=== PATIENT | female | born 1980 | race Caucasian/White ===

== ENCOUNTER 2023-02-09 11:40 | Emergency (ER) | payer MEDICAID ==
[~2023-02-09 11:40] MED LIST: ACHD5005 PO; ALPR.5T PO; AMOX500C2 PO; ASPI1TAB17 PO; CEPH500T PO; CYCL10TA25 PO; DCS100C; DIPH1TAB45 PO; DOCU-143 PO; Depakote; ESTR1PAT28 TD; FLX20C; GBPN600T; GBPN600T PO; HYOS0.1216 PO; HYOS0.1283 SL; IBP800T PO; LINA290C PO; LISI-594 PO; LSNP10T; MELO15TA39 PO; METF-397 PO; MTC10T; ONDAN4ODT PO; ONDAN4ODT SL; PRAV10TA PO; PRM25T PO; QUET300T; RIZA10TA23 PO; TIZA-186 PO; TOPI200T25 PO; TRIA16.5 NS; migraine med
[2023-02-09 12:18] LABS: BASOPHILS % (AUTO) 1 % (0-10); EOSINOPHILS # (AUTO) 0.1 10^3/uL (0.0-0.3); EOSINOPHILS % (AUTO) 1 % (0-10); HEMATOCRIT 40 % (35-52); HEMOGLOBIN 13.2 g/dL (11.5-16.0); LYMPHOCYTES # (AUTO) 2.6 10^3/uL (1.0-4.0); LYMPHOCYTES % (AUTO) 51 % (12-44); MEAN CORPUSCULAR HEMOGLOBIN 32 pg (25-34); MEAN CORPUSCULAR HGB CONC 33 g/dL (32-36); MEAN CORPUSCULAR VOLUME 98 fL (80-99); MEAN PLATELET VOLUME 11.1 fL (9.0-12.2); MONOCYTES # (AUTO) 0.3 10^3/uL (0.0-1.0); MONOCYTES % (AUTO) 5 % (0-12); NEUTROPHILS # (AUTO) 2.2 10^3/uL (1.8-7.8); NEUTROPHILS % (AUTO) 42 % (42-75); PLATELET COUNT 150 10^3/uL (130-400); WHITE BLOOD COUNT 5.2 10^3/uL (4.3-11.0)
[2023-02-09 12:36] LABS: ALBUMIN 4.5 GM/DL (3.2-4.5); POTASSIUM 3.6 MMOL/L (3.6-5.0)
[2023-02-09 12:38] LABS: CALCIUM 9.5 MG/DL (8.5-10.1)
[2023-02-09 12:39] LABS: TOTAL PROTEIN 7.7 GM/DL (6.4-8.2)
[2023-02-09 12:40] LABS: BILIRUBIN,TOTAL 0.2 MG/DL (0.1-1.0)
[2023-02-09 12:42] LABS: CREATININE SERUM 1.04 MG/DL (0.60-1.30)
--- NOTE | 2023-02-09 12:43 | ED General ---
General Chief Complaint: Dizziness/Syncope Stated Complaint: SYNCOPE Nursing Triage Note: PT ARRIVED PER EMS, PT HAS HAD SYNCOPAL EPISODE AT WORK TODAY. PT DID NOT FALL TO FLOOR STAYED IN CHAIR. PT STATES HAS SWOLLEN AND TINGLING UP TO ARMS, WORSENING FOR 3 WEEKS HAVE HAD TINGLING FOR APPROX 1.5 YEARS. HAS EMG SCHEDULED IN APR. PT STATES HAS BEEN DROPING THINGS ALL DAY Source of Information: Patient, EMS Exam Limitations: No Limitations History of Present Illness Date Seen by Provider: Feb 09, 2023 Time Seen by Provider: 11:43 Initial Comments Susan is a 42-year-old woman who presents to the emergency room via EMS with concerns about a syncopal episode and some possible neurologic symptoms in her upper extremities. Patient is alert and oriented upon arrival. She reports today her bilateral hands were painful and tingly/numb. Symptoms appear to be equal bilaterally. She also had some brief paresthesia sensation in the right leg. Her symptoms in the arms progressed this morning to more of a numb sensation with loss of feeling in the hands. A burning sensation then progressed up her arms bilaterally. She then became very lightheaded. She reportedly had a syncopal episode. It does not appear that this was a complete syncope as patient states she could still hear others around her and was aware of the situation but could not respond. This episode lasted about 30 seconds. She felt like her legs were moving without her control during this episode. She recovered quickly to baseline after this brief episode. Symptoms are now more of a waxing and waning of the upper extremity paresthesias. She was able to walk to the EMS cot after the episode. She denies any prior syncopal or near syncopal episodes. She denies any associated chest pain, palpitations, or shortness of air. For 12 to 18 months she reports having sporadic pains in her hands, wrists, and forearms. She also finds herself dropping items unexpectedly. She denies that the pain in the neck. She has been wearing wrist braces for presumed carpal tunnel syndrome. This has been minimally helpful. She does do repetitive work with her hands. She has pending EMG studies of the upper extremities ordered by her primary care provider. Allergies and Home Medications Allergies Coded Allergies: No Known Drug Allergies (Unverified , 02/09/23) Patient Home Medication List Home Medication List Reviewed: Yes Review of Systems Review of Systems Constitutional: no symptoms reported EENTM: no symptoms reported Respiratory: no symptoms reported Cardiovascular: see HPI Gastrointestinal: no symptoms reported Genitourinary: no symptoms reported : No Musculoskeletal: see HPI Skin: no symptoms reported Psychiatric/Neurological: See HPI Hematologic/Lymphatic: No Symptoms Reported Immunological/Allergic: no symptoms reported Past Qagqzmy-Fnepzg-Bvndua Hx Patient Social History Tobacco Use?: No Substance use?: No Alcohol Use?: No Pt feels they are or have been: No Past Medical History Surgery/Hospitalization HX: MIGRAINES. T AND A, GB, APPY, HYST, C-SECTIONS, WRIST FROM GANGLION CYST, L ANKLE SURG X3 Surgeries: Yes Appendectomy, Section, Gallbladder, Hysterectomy, Orthopedic (Foot, ganglion cyst removal), Tonsillectomy Respiratory: No Cardiac: Yes High Cholesterol Neurological: Yes Headaches /Migraines : No Genitourinary: No Gastrointestinal: No Musculoskeletal: No Endocrine: No HEENT: No Cancer: No Psychosocial: No Physical Exam Vital Signs Vital Signs - First Documented 02/09/23 02/09/23 11:47 15:41 Temp 36.2 Pulse 67 Resp 18 B/P (MAP) 149/94 (112) Pulse Ox 100 O2 Delivery Room Air Capillary Refill : Less Than 3 Seconds Height, Weight, BMI Height: '" Weight: lbs. oz. kg; BMI Method: General Appearance: No Apparent Distress, WD/WN HEENT: PERRL/EOMI, Normal ENT Inspection Neck: Normal Inspection, Non Tender Respiratory: Lungs Clear, Normal Breath Sounds, No Accessory Muscle Use Cardiovascular: Regular Rate, Rhythm, No Edema, No Murmur Gastrointestinal: Non Tender, Soft; No Distended Extremity: Normal Inspection, Non Tender, No Pedal Edema Neurologic/Psychiatric: Alert, Oriented x3, No Motor/Sensory Deficits, Normal Mood/Affect Skin: Normal Color, Warm/Dry Progress/Results/Core Measures Suspected Sepsis SIRS Temperature: Pulse: 67 Respiratory Rate: 18 Laboratory Tests 02/09/23 12:10: White Blood Count 5.2 Blood Pressure 149 /94 Mean: 112 Laboratory Tests 02/09/23 12:10: Creatinine 1.04, Platelet Count 150, Total Bilirubin 0.2 Results/Orders Lab Results Laboratory Tests Test 02/09/23 12:10 02/09/23 13:32 Range/Units White Blood Count 5.2 4.3-11.0 10^3/uL Red Blood Count 4.11 3.80-5.11 10^6/uL Hemoglobin 13.2 11.5-16.0 g/dL Hematocrit 40 35-52 % Mean Corpuscular Volume 98 80-99 fL Mean Corpuscular Hemoglobin 32 25-34 pg Mean Corpuscular Hemoglobin Concent 33 32-36 g/dL Red Cell Distribution Width 13.6 10.0-14.5 % Platelet Count 150 130-400 10^3/uL Mean Platelet Volume 11.1 9.0-12.2 fL Immature Granulocyte % (Auto) 0 % Neutrophils (%) (Auto) 42 42-75 % Lymphocytes (%) (Auto) 51 H 12-44 % Monocytes (%) (Auto) 5 0-12 % Eosinophils (%) (Auto) 1 0-10 % Basophils (%) (Auto) 1 0-10 % Neutrophils # (Auto) 2.2 1.8-7.8 10^3/uL Lymphocytes # (Auto) 2.6 1.0-4.0 10^3/uL Monocytes # (Auto) 0.3 0.0-1.0 10^3/uL Eosinophils # (Auto) 0.1 0.0-0.3 10^3/uL Basophils # (Auto) 0.0 0.0-0.1 10^3/uL Immature Granulocyte # (Auto) 0.0 0.0-0.1 10^3/uL Sodium Level 141 135-145 MMOL/L Potassium Level 3.6 3.6-5.0 MMOL/L Chloride Level 117 H 98-107 MMOL/L Carbon Dioxide Level 15 L 21-32 MMOL/L Anion Gap 9 5-14 MMOL/L Blood Urea Nitrogen 11 7-18 MG/DL Creatinine 1.04 0.60-1.30 MG/DL Estimat Glomerular Filtration Rate 68 BUN/Creatinine Ratio 11 Glucose Level 108 H 70-105 MG/DL Calcium Level 9.5 8.5-10.1 MG/DL Corrected Calcium 9.1 8.5-10.1 MG/DL Magnesium Level 2.0 1.6-2.4 MG/DL Total Bilirubin 0.2 0.1-1.0 MG/DL Aspartate Amino Transf (AST/SGOT) 41 H 5-34 U/L Alanine Aminotransferase (ALT/SGPT) 44 0-55 U/L Alkaline Phosphatase 88 40-136 U/L Total Protein 7.7 6.4-8.2 GM/DL Albumin 4.5 3.2-4.5 GM/DL Urine Color YELLOW Urine Clarity CLEAR Urine pH 6.0 5-9 Urine Specific [place] 1.015 L 1.016-1.022 Urine Protein NEGATIVE NEGATIVE Urine Glucose (UA) NEGATIVE NEGATIVE Urine Ketones NEGATIVE NEGATIVE Urine Nitrite NEGATIVE NEGATIVE Urine Bilirubin NEGATIVE NEGATIVE Urine Urobilinogen 0.2 < = 1.0 MG/DL Urine Leukocyte Esterase NEGATIVE NEGATIVE Urine RBC (Auto) NEGATIVE NEGATIVE Urine RBC NONE /HPF Urine WBC NONE /HPF Urine Squamous Epithelial Cells 5-10 /HPF Urine Crystals NONE /LPF Urine Bacteria NEGATIVE /HPF Urine Casts NONE /LPF Urine Mucus NEGATIVE /LPF Urine Culture Indicated NO My Orders Orders - YASMANI JOHN MD Ed Iv/Invasive Line Start (02/09/23 11:43) Ekg Tracing (02/09/23 11:43) Monitor-Rhythm Ecg Trace Only (02/09/23 11:43) Cbc And Automated Diff (02/09/23 11:43) Comprehensive Metabolic Panel (02/09/23 11:43) Magnesium (02/09/23 11:43) Ua Culture If Indicated (02/09/23 11:43) Mri Brain W/O Contrast (02/09/23 13:15) Mri Cervical Spine W/O Contras (02/09/23 13:15) Vital Signs/I&O 02/09/23 02/09/23 11:47 15:41 Temp 36.2 Pulse 67 84 Resp 18 B/P (MAP) 149/94 (112) 129/84 Pulse Ox 100 98 O2 Delivery Room Air Capillary Refill : Less Than 3 Seconds Blood Pressure Mean: 112 Progress Note : Progress Note Patient was essentially back to baseline at the time of her arrival. Report was received from EMS. Ssuan was interviewed and examined. Labs were obtained and interpreted by me. CBC, CMP, magnesium and urinalysis demonstrated no clinically relevant abnormalities by my interpretation. ECG was unremarkable with no evidence of ischemia or arrhythmia as noted in my interpretation below. MRI imaging was offered to the patient to evaluate the cervical spine and brain for possible causes of her upper extremity paresthesias and weakness as well as causes of her near syncopal episode today. Patient requested to proceed with MRI imaging. MRI brain and cervical spine were obtained. Radiologist's reports were reviewed as noted below. No significant abnormalities to explain her symptoms were identified. Patient was discharged in stable condition. See discharge instructions for further discussion. ECG Initial ECG Impression Date: Feb 09, 2023 Initial ECG Impression Time: 12:16 Initial ECG Rate: 56 Initial ECG Rhythm: Normal Sinus Initial ECG Intervals: Normal Initial ECG Impression: Normal Comment Normal sinus rhythm with no ST elevation or depression. No abnormal intervals or axis deviation. Diagnostic Imaging Diagonstic Imaging: MRI Plain Films/CT/US/NM/MRI: head Comments NAME: SUSAN JACKSON [facility] REC#: [id number] PT STATUS: DEP ER : 1980 PHYSICIAN: YASMANI JOHN MD ADMIT DATE: 02/09/23/ER Signed Date of Exam:02/09/23 MRI BRAIN W/O CONTRAST PROCEDURE: MR imaging of the brain without contrast. TECHNIQUE: Multiplanar, multisequence MR imaging of the brain was performed without contrast. INDICATION: 42-year-old female with syncopal episode, now presenting with bilateral upper extremity numbness and tingling. COMPARISON: None. FINDINGS: Midline structures are not displaced. Lateral, 3rd and 4th ventricles are normal in size, shape and anatomic position. There is no mass, mass effect, hydrocephalus or hemorrhage. Cortes-white differentiation is normal. There is no sulcal effacement. There is no area of diffusion restriction or diffusion signal abnormality to suggest acute or subacute ischemic injury. There is no abnormal extra-axial fluid collection or hemorrhage. Petrous apices as well as the 7th and 8th nerve complexes are normal. Semicircular canals and cochlea show normal signal. Visualized vascular flow voids are unremarkable. There are a diffuse small mucous retention cysts in the right maxillary sinus as well as the posterior ethmoid air cells. Orbits and mastoid air cells are unremarkable. IMPRESSION: 1. Essentially unremarkable noncontrast MRI brain. 2. Some mild chronic maxillary sinus disease with a small mucous retention cyst in the right maxillary sinus as well as the posterior ethmoid air cells. Additional nonemergent findings as described above. Dictated by: Dictated on workstation # [id number] Dict: 02/09/23 1355 Trans: 02/09/23 4062 [facility] [id number] Interpreted by: JOÃO GAINES MD Electronically signed by: JOÃO GAINES MD 02/09/23 1712 Diagonstic Imaging: MRI Plain Films/CT/US/NM/MRI: c-spine Comments NAME: SUSAN JACKSON [facility] REC#: [id number] PT STATUS: REG ER : 1980 PHYSICIAN: YASMANI JOHN MD ADMIT DATE: 02/09/23/ER Signed Date of Exam:02/09/23 MRI CERVICAL SPINE W/O CONTRAS PROCEDURE: MR imaging cervical spine without contrast. TECHNIQUE: Multiplanar, multisequence MR imaging of the cervical spine was performed without contrast. INDICATION: Syncope, bilateral upper extremity numbness and tingling. COMPARISON: None. FINDINGS: Straightening of the cervical lordosis. Mild multilevel disc height loss. No marrow replacement process to suggest malignancy. Facet joints demonstrated minimal facet arthritis. Included views of the brain demonstrate no significant abnormality. The cervical spinal cord is normal. Destructive vertebral artery flow voids are maintained. No significant spinal canal or neural foraminal stenosis. IMPRESSION: No significant spinal canal or neuroforaminal stenosis. Normal appearance of the cervical spinal cord. Dictated by: Dictated on workstation # [id number] Dict: 02/09/23 1413 Trans: 02/09/23 141 [facility] [id number] Interpreted by: LUIS MIGUEL PACHECO DO Electronically signed by: LUIS MIGUEL PACHECO DO 02/09/23 1417 Departure Impression Primary Impression: Near syncope Additional Impression: Paresthesia and pain of both upper extremities Disposition: 01 HOME, SELF-CARE Condition: Stable Departure-Patient Inst. Decision time for Depature: 15:35 Patient Instructions: Carpal tunnel syndrome, Near Fainting, Paresthesia (DC) Add. Discharge Instructions: No specific cause for your symptoms was determined in your ER visit today. Please follow-up with your primary care provider soon as possible, and proceed with the EMG testing as previously directed. Discuss further workup with your primary care provider at her discretion. Other studies such as cardiac monitoring could be obtained to further evaluate the symptoms you are experiencing. MRI studies of your neck and brain did not reveal any specific cause for your symptoms such as stroke, spinal stenosis, tumor, multiple sclerosis, etc. Return to care if you have worsening symptoms despite following these instructions. All discharge instructions reviewed with patient and/or family. Voiced understanding. YASMANI JOHN MD Feb 09, 2023 12:43
[2023-02-09 13:52] LABS: BACTERIA,URINE NEGATIVE /HPF; BILIRUBIN,URINE NEGATIVE (NEGATIVE); CLARITY,URINE CLEAR; COLOR,URINE YELLOW; GLUCOSE, URINE (UA) NEGATIVE (NEGATIVE); KETONES,URINE NEGATIVE (NEGATIVE); LEUKOCYTE ESTERASE ,URINE NEGATIVE (NEGATIVE); NITRITE,URINE NEGATIVE (NEGATIVE); PROTEIN,URINE NEGATIVE (NEGATIVE)
--- NOTE | 2023-02-09 14:18 | Diagnostic Imaging Report ---
PROCEDURE: MR imaging cervical spine without contrast. TECHNIQUE: Multiplanar, multisequence MR imaging of the cervical spine was performed without contrast. INDICATION: Syncope, bilateral upper extremity numbness and tingling. COMPARISON: None. FINDINGS: Straightening of the cervical lordosis. Mild multilevel disc height loss. No marrow replacement process to suggest malignancy. Facet joints demonstrated minimal facet arthritis. Included views of the brain demonstrate no significant abnormality. The cervical spinal cord is normal. Destructive vertebral artery flow voids are maintained. No significant spinal canal or neural foraminal stenosis. IMPRESSION: No significant spinal canal or neuroforaminal stenosis. Normal appearance of the cervical spinal cord. Dictated by: Dictated on workstation # [id number]
--- NOTE | 2023-02-09 14:41 | Diagnostic Imaging Report ---
PROCEDURE: MR imaging of the brain without contrast. TECHNIQUE: Multiplanar, multisequence MR imaging of the brain was performed without contrast. INDICATION: 42-year-old female with syncopal episode, now presenting with bilateral upper extremity numbness and tingling. COMPARISON: None. FINDINGS: Midline structures are not displaced. Lateral, 3rd and 4th ventricles are normal in size, shape and anatomic position. There is no mass, mass effect, hydrocephalus or hemorrhage. Cortes-white differentiation is normal. There is no sulcal effacement. There is no area of diffusion restriction or diffusion signal abnormality to suggest acute or subacute ischemic injury. There is no abnormal extra-axial fluid collection or hemorrhage. Petrous apices as well as the 7th and 8th nerve complexes are normal. Semicircular canals and cochlea show normal signal. Visualized vascular flow voids are unremarkable. There are a diffuse small mucous retention cysts in the right maxillary sinus as well as the posterior ethmoid air cells. Orbits and mastoid air cells are unremarkable. IMPRESSION: 1. Essentially unremarkable noncontrast MRI brain. 2. Some mild chronic maxillary sinus disease with a small mucous retention cyst in the right maxillary sinus as well as the posterior ethmoid air cells. Additional nonemergent findings as described above. Dictated by: Dictated on workstation # [id number]
[2023-02-09 15:41] VITALS: BP 129/84
== END 2023-02-09 15:42 | disposition home or self-care (01) ==
LOC: ER 11:43
DX: R55 Syncope and collapse (principal); R20.2 Paresthesia of skin; M79.642 Pain in left hand; M79.641 Pain in right hand; R20.0 Anesthesia of skin
CPT/HCPCS: 36415; 70551; 72141; 80053; 81000; 83735; 85025; 93005; 93041